=== PATIENT | male | born 1970 | race Caucasian/White ===

== ENCOUNTER 2016-09-16 16:28 | Emergency (ER) | payer OTHER ==
[~2016-09-16] VITALS: Ht 188 cm; Wt 113.4 kg
[2016-09-16 17:16] VITALS: BP 152/83
[2016-09-16 18:28] LABS: BILIRUBIN,URINE SMALL (NEG); GLUCOSE,URINE NEGATIVE (NEG); NITRITE,URINE POSITIVE (NEG); PH,URINE 6.5; PROTEIN,URINE 100 mg/dL (NEG-TRACE)
--- NOTE | 2016-09-16 18:30 | PHYS DOC ---
Past Medical History Past Medical History: No Pertinent History Past Surgical History: Other Additional Past Surgical Histo: Back Alcohol Use: None Drug Use: None Adult General Chief Complaint Chief Complaint: TESTICULAR PAIN OR INJURY [facility] 46-year-old male who states he was bending over to tie his shoes earlier today and fell exquisite lower abdominal pain that then subsided. Patient then stated he started to feel symptoms of fever and developed a large amount of right testicular pain and swelling. Patient denies any nausea or vomiting. Patient does believe he is having some blood in his urine. He denies any pain with urination. He denies any significant pain when he is at rest. He denies any history of abdominal surgery. He denies any abdominal pain that localizes also pain to his right testicle. Patient is not requesting any pain medications. Review of Systems Review of Systems Constitutional: Denies fever or chills [] Eyes: Denies change in visual acuity, redness, or eye pain [] HENT: Denies nasal congestion or sore throat [] Respiratory: Denies cough or shortness of breath [] Cardiovascular: No additional information not addressed in HPI [] GI: Has abdominal pain, denies nausea, denies vomiting, denies bloody stools or diarrhea [] : Denies dysuria, has hematuria [] Musculoskeletal: Denies back pain or joint pain [] Integument: Denies rash or skin lesions [] Neurologic: Denies headache, focal weakness or sensory changes [] Endocrine: Denies polyuria or polydipsia [] Allergies Allergies Allergies Coded Allergies Type Severity Reaction Last Updated Verified No Known Drug Allergies 09/16/16 No Physical Exam Physical Exam Constitutional: Well developed, well nourished, no acute distress, non-toxic appearance. [] HENT: Normocephalic, atraumatic, bilateral external ears normal, oropharynx moist, no oral exudates, nose normal. [] Eyes: PERRLA, EOMI, conjunctiva normal, no discharge. [] Neck: Normal range of motion, no tenderness, supple, no stridor. [] Cardiovascular:Heart rate regular rhythm, no murmur [] Lungs & Thorax: Bilateral breath sounds clear to auscultation [] Abdomen: Bowel sounds normal, soft, no tenderness, no masses, no pulsatile masses. [] : Significant right-sided scrotal swelling and inflammation as well as pain to testicular palpation. Pain is increased with palpation and is not relieved. There is no horizontal lie of the testicle. Skin: Warm, dry, no erythema, no rash. [] Back: No tenderness, no CVA tenderness. [] Extremities: No tenderness, no cyanosis, no clubbing, ROM intact, no edema. [] Neurologic: Alert and oriented X 3, normal motor function, normal sensory function, no focal deficits noted. [] Psychologic: Affect normal, judgement normal, mood normal. [] Current Patient Data Vital Signs Vital Signs Date Time Temp Pulse Resp B/P Pulse Ox O2 Delivery O2 Flow Rate FiO2 09/16/16 17:16 99.4 85 20 152/83 100 Room Air 99.4 Lab Values Laboratory Tests Test 09/16/16 18:22 Urine Collection Type Unknown Urine Color Dolores Urine Clarity Turbid Urine pH 6.5 Urine Specific [place] >=1.030 Urine Protein 100mg/dL (NEG-TRACE) Urine Glucose (UA) Negativemg/dL (NEG) Urine Ketones (Stick) Tracemg/dL (NEG) Urine Blood Large (NEG) Urine Nitrite Positive (NEG) Urine Bilirubin Small (NEG) Urine Urobilinogen Dipstick 1.0mg/dL (0.2 mg/dL) Urine Leukocyte Esterase Large (NEG) Urine RBC 1-2/HPF (0-2) Urine WBC Tntc/HPF (0-4) Urine Squamous Epithelial Cells Few/LPF Urine Bacteria Many/HPF (0-FEW) Urine Mucus Slight/LPF EKG EKG [] Radiology/Procedures Radiology/Procedures Scrotal ultrasound demonstrates the following: Testicular sonogram Indication: Right testicular pain Technique: Multiple real-time grayscale sonographic images were obtained over the scrotum. Findings: The right testicle measures 4.4 x 2.2 x 3.7 centimeters. Epididymis measures 1.4 centimeters. There is normal arterial blood flow in the right testicle. A right-sided hydrocele is noted. The epididymis shows increased vascularity on the Doppler images and appears edematous in the epididymal tail. The left testicle measures 5.5 x 2.4 x 3.4 centimeters. The left epididymis measures 1.2 centimeters. There is normal arterial blood flow in the left testicle. Impression: - There is some thickening of the epididymal tail in hypervascularity as well. This is suspicious for acute epididymitis. Course & Med Decision Making Course & Med Decision Making Pertinent Labs and Imaging studies reviewed. (See chart for details) This is a 46 old significant right-sided scrotal pain and swelling in the right side. A stat scrotal ultrasound will be obtained rule out any compromise blood throat to the testicle. The differential at this time includes epididymitis, orchitis, and less likely testicular torsion. Hernia is also on the differential although less likely as I did not palpate one on exam. I'll also be obtaining urinalysis to rule out any signs of infection. Ultrasound of the right testicle demonstrated findings consistent with epididymitis for which I'll be putting him on a 10 day course of doxycycline with several Pool tablets. He will follow closely with his primary care doctor next several days and take his antibiotic as instructed. Dragon Disclaimer Dragon Disclaimer This electronic medical record was generated, in whole or in part, using a voice recognition dictation system. Departure Departure Impression: Primary Impression: Epididymitis Disposition: 01 HOME, SELF-CARE Admitting Physician: Other Condition: LEFT WITHOUT BEING SEEN Referrals: KAYLEE SANTOS MD (PCP) Patient Instructions: Epididymitis Additional Instructions: Please follow up with your primary doctor in the next 2-3 days for your epididymitis. Take your antibiotic as instructed. Take your pain medication as prescribed. Return to the ER if you develop any worsening of your symptoms. Scripts Hydrocodone/Apap 5-325 (Pool 5-325 Tablet)1 Each Tablet1 Tab PO PRN Q6HRS PRN PAIN #6 TAB Ref 0 Prov:MIGUEL MCDONNELL DO 09/16/16 Doxycycline Monohydrate 100 Mg Capsule1 Cap PO BID #20 CAP Prov:MIGUEL MCDONNELL DO 09/16/16 MIGUEL MCDONNELL DO Sep 16, 2016 18:30
[2016-09-16 18:44] LABS: BACTERIA,URINE MANY /HPF (0-FEW); SQUAMOUS EPITHELIAL CELL,UR FEW /LPF; WBC,URINE TNTC /HPF (0-4)
--- NOTE | 2016-09-16 19:02 | RAD ---
Testicular sonogram Indication: Right testicular pain Technique: Multiple real-time grayscale sonographic images were obtained over the scrotum. Findings: The right testicle measures 4.4 x 2.2 x 3.7 centimeters. Epididymis measures 1.4 centimeters. There is normal arterial blood flow in the right testicle. A right-sided hydrocele is noted. The epididymis shows increased vascularity on the Doppler images and appears edematous in the epididymal tail. The left testicle measures 5.5 x 2.4 x 3.4 centimeters. The left epididymis measures 1.2 centimeters. There is normal arterial blood flow in the left testicle. Impression: - There is some thickening of the epididymal tail in hypervascularity as well. This is suspicious for acute epididymitis. Electronically signed by: Mateus Gallegos (Sep 16, 2016 19:01:22)
[2016-09-16] MEDS ORDERED: HYDR-971 PO (19:17)
[2016-09-16] MEDS ORDERED: DOXY100C14 PO (19:17)
== END 2016-09-16 20:05 | disposition home or self-care (01) ==
LOC: ER 16:28
DX: N45.1 Epididymitis (principal); R50.9 Fever, unspecified; R10.30 Lower abdominal pain, unspecified
CPT/HCPCS: 76870; 81001; 87086; 87186; 99285-25

== ENCOUNTER → 2016-09-30 | Outpatient (CLI) | payer OTHER ==
[2016-09-16 17:16] VITALS: BP 152/83
[~2016-09-30] MED LIST: DOXY100C14 PO; HYDR-971 PO
--- NOTE | 2016-09-30 15:00 | KCIC ---
PROCEDURE Two-view chest HISTORY Mid chest pain on breathing. Shortness of breath on exertion since last night. COMPARISON December 16, 2015. FINDINGS The cardiac silhouette is stable and not enlarged No evidence of pneumothorax. No focal airspace consolidation. No evidence of pleural effusion. IMPRESSION No evidence active disease in the chest or significant interval change. Electronically signed by: Brent Arroyo MD (Sep 30, 2016 14:58:56)
== END | disposition home or self-care (01) ==
LOC: KCIC 10:16
PROVIDERS: ATTEND Physician Assistant Medical
DX: R06.02 Shortness of breath (principal)
CPT/HCPCS: 71020

== ENCOUNTER 2016-10-10 10:10 | Inpatient (IN) | payer OTHER ==
[~2016-10-10] VITALS: Ht 188 cm; Wt 112.1 kg
--- NOTE | 2016-10-10 10:53 | EKG ---
[facility] [address] [place] [address] Test Date: 2016-10-10 Test Time: 10:24:26 Pat Name: KENNEY DIAL Department: Room: Gender: M [employer]er: : 1970 Requested By: Tracy HUNTER Order Number: [id number] Reading MD: Jonny Ortiz Measurements Intervals [place] Rate: 78 P: 46 WA: 152 QRS: 52 QRSD: 108 T: 36 QT: 386 QTc: 444 Interpretive Statements SINUS RHYTHM NONSPECIFIC ST-T WAVE CHANGES. RI6.01 Unconfirmed report Compared to ECG 01/09/2013 06:00:50 No significant changes Electronically Signed On 10-10-2016 14:19:57 [employer] by Jonny Ortiz
[2016-10-10] MEDS ORDERED: ASPIRIN 325 MG TABLET PO ONE (11:00)
[2016-10-10 11:10] LABS: BASO % 0 % (0-3); EOS % 1 % (0-3); HEMATOCRIT 49.8 % (39.0-53.0); HEMOGLOBIN 16.4 g/dL (13.0-17.5); LYMPH # 1.5 x10^3/uL (1.0-4.8); LYMPH % 18 % (24-48); MEAN CORPUSCULAR HEMOGLOBIN 28 pg (25-35); MEAN CORPUSCULAR HGB CONC 33 g/dL (31-37); MEAN CORPUSCULAR VOLUME 86 fL (79-100); MONO % 9 % (0-9); NEUT % 72 % (31-73); PLATELET COUNT 227 x10^3/uL (140-400); RED BLOOD COUNT 5.76 x10^6/uL (4.30-5.70); WHITE BLOOD COUNT 8.7 x10^3/uL (4.0-11.0)
[2016-10-10 11:20] LABS: CALCIUM 9.5 mg/dL (8.5-10.1); CREATININE 1.2 mg/dL (0.7-1.3); GFR 65.8; POTASSIUM 4.1 mmol/L (3.5-5.1)
[2016-10-10 12:14] LABS: BARBITURATES NEG (NEG); BENZODIAZEPINES NEG (NEG); CANNABINOIDS NEG (NEG); COCAINE NEG (NEG); METHADONE NEG (NEG); OPIATES NEG (NEG); PHENCYCLIDINE NEG (NEG)
[2016-10-10 12:15] LABS: ETHANOL, URINE NEG (NEG)
[2016-10-10] MEDS ORDERED: FENTANYL PF 100 MCG/2 ML VIAL. IV PRN (12:45)
[2016-10-10] MEDS ORDERED: ACETAMINOPHEN 325 MG TABLET. PO PRN (12:45)
[2016-10-10] MEDS ORDERED: NITROGLYCERIN SUBLINGUAL 0.4 MG BOTTLE OF 25. SL PRN (12:45)
[2016-10-10] MEDS ORDERED: ONDANSETRON PF 4 MG/2 ML VIAL. IV PRN (12:45)
--- NOTE | 2016-10-10 12:46 | RAD ---
PA and lateral chest radiographs 10/10/2016 Clinical history: Midline chest pain for one week. Two PA and a lateral digital radiographs of the chest were obtained. Comparison study is dated 09/30/2016. The cardiac silhouette is normal in size. The thoracic aorta is minimally tortuous. No acute pulmonary infiltrate is seen. No pleural effusion or pneumothorax is noted. Mild degenerative changes are seen involving the thoracic spine. Impression: No acute abnormality is seen.
--- NOTE | 2016-10-10 12:58 | PHYS DOC ---
Past Medical History Past Medical History: Anxiety Past Surgical History: Other Additional Past Surgical Histo: HERNIATED DISC BACK SX Alcohol Use: None Drug Use: Marijuana Adult General Chief Complaint Chief Complaint: CHEST PAIN HPI HPI Patient is a 46 year old male who presents with for intermittent exertional chest pressure associated with dyspnea that get better with rest. States his symptoms have been over the past 10 days. He saw his primary care doctor, Dr. England, who arranged outpatient stress test for him. He skips this test because his symptoms improved. His symptoms have since returned most recently has a few hours prior to presentation. He is currently asymptomatic. He denies cough, dyspnea, orthopnea, leg pain or swelling, hemoptysis, palpitations, diaphoresis, lightheadedness. Review of Systems Review of Systems Constitutional: Denies fever or chills [] Eyes: Denies change in visual acuity, redness, or eye pain [] HENT: Denies nasal congestion or sore throat [] Respiratory: Denies cough or shortness of breath [] Cardiovascular: No additional information not addressed in HPI [] GI: Denies abdominal pain, nausea, vomiting, bloody stools or diarrhea [] : Denies dysuria or hematuria [] Musculoskeletal: Denies back pain or joint pain [] Integument: Denies rash or skin lesions [] Neurologic: Denies headache, focal weakness or sensory changes [] Endocrine: Denies polyuria or polydipsia [] Current Medications Current Medications Current Medications Medications (Trade) Dose Ordered Sig/[facility] Start Time Stop Time Status Last Admin Dose Admin Aspirin (Damir Aspirin) 325 mg 1X ONCE 10/10/16 11:00 10/10/16 11:03 DC 10/10/16 11:13 325 MG Allergies Allergies Allergies Coded Allergies Type Severity Reaction Last Updated Verified No Known Drug Allergies 09/16/16 No Physical Exam Physical Exam Constitutional: Well developed, well nourished, no acute distress, non-toxic appearance. [] HENT: Normocephalic, atraumatic, bilateral external ears normal, oropharynx moist, nose normal. [] Eyes: PERRLA, EOMI. [] Neck: Normal range of motion, supple. [] Cardiovascular:Heart rate regular rhythm [] Lungs & Thorax: Bilateral breath sounds clear to auscultation [] Abdomen: Bowel sounds normal, soft, no tenderness. [] Skin: Warm, dry, no erythema, no rash. [] Back: Normal range of motion. [] Extremities: No tenderness, ROM intact, no edema, no palpable cord. [] Neurologic: Alert and oriented X 3, normal motor function, normal sensory function, no focal deficits noted. [] Psychologic: Affect normal, judgement normal, mood normal. [] Current Patient Data Vital Signs Vital Signs Date Time Temp Pulse Resp B/P Pulse Ox O2 Delivery O2 Flow Rate FiO2 10/10/16 12:30 72 20 130/73 95 Room Air 10/10/16 10:30 98.0 98.0 Lab Values Laboratory Tests Test 10/10/16 11:00 10/10/16 11:51 White Blood Count 8.7x10^3/uL (4.0-11.0) Red Blood Count 5.76x10^6/uL (4.30-5.70) H Hemoglobin 16.4g/dL (13.0-17.5) Hematocrit 49.8% (39.0-53.0) Mean Corpuscular Volume 86fL (79-100) Mean Corpuscular Hemoglobin 28pg (25-35) Mean Corpuscular Hemoglobin Concent 33g/dL (31-37) Red Cell Distribution Width 15.0% (11.5-14.5) H Platelet Count 227x10^3/uL (140-400) Neutrophils (%) (Auto) 72% (31-73) Lymphocytes (%) (Auto) 18% (24-48) L Monocytes (%) (Auto) 9% (0-9) Eosinophils (%) (Auto) 1% (0-3) Basophils (%) (Auto) 0% (0-3) Neutrophils # (Auto) 6.3x10^3uL (1.8-7.7) Lymphocytes # (Auto) 1.5x10^3/uL (1.0-4.8) Monocytes # (Auto) 0.7x10^3/uL (0.0-1.1) Eosinophils # (Auto) 0.1x10^3/uL (0.0-0.7) Basophils # (Auto) 0.0x10^3/uL (0.0-0.2) Sodium Level 140mmol/L (136-145) Potassium Level 4.1mmol/L (3.5-5.1) Chloride Level 103mmol/L (98-107) Carbon Dioxide Level 27mmol/L (21-32) Anion Gap 10 (6-14) Blood Urea Nitrogen 15mg/dL (8-26) Creatinine 1.2mg/dL (0.7-1.3) Estimated GFR (Cockcroft-Gault) 65.8 Glucose Level 98mg/dL (70-99) Calcium Level 9.5mg/dL (8.5-10.1) Troponin I Quantitative < 0.017ng/mL (0.000-0.055) VL-Uwu-H-Type Natriuretic Peptide 29pg/mL (0-124) Urine Opiates Screen Neg (NEG) Urine Methadone Screen Neg (NEG) Urine Barbiturates Neg (NEG) Urine Phencyclidine Screen Neg (NEG) Urine Amphetamine/Methamphetamine Neg (NEG) Urine Benzodiazepines Screen Neg (NEG) Urine Cocaine Screen Neg (NEG) Urine Cannabinoids Screen Neg (NEG) Urine Ethyl Alcohol Neg (NEG) Laboratory Tests 10/10/16 11:00 Laboratory Tests 10/10/16 11:00 EKG EKG EKG as interpreted by me as normal sinus rhythm, rate 78, no ST-T changes, normal intervals, no ectopy Radiology/Procedures Radiology/Procedures Chest xray as interpreted by me with no acute cardiopulmonary disease process Course & Med Decision Making Course & Med Decision Making Pertinent Labs and Imaging studies reviewed. (See chart for details) Workup is unremarkable. Symptoms are concerning for unstable angina. Will admit for ACS rule out. Discussed case with Dr. England, who agrees to admit. Discussed case with Dr. Pascual, cardiology, who will see him. YANICK score 1 Dragon Disclaimer Dragon Disclaimer This electronic medical record was generated, in whole or in part, using a voice recognition dictation system. Departure Departure Impression: Primary Impression: Chest pain Disposition: ADMITTED INPATIENT Condition: STABLE Referrals: KAYLEE ENGLAND MD (PCP) Problem Qualifiers Primary Impression: Chest pain Chest pain type: unspecified Qualified Code: R07.9 - Chest pain, unspecified Tracy HUNTER MD Oct 10, 2016 12:57
--- NOTE | 2016-10-10 13:36 | PDOC2 ---
CONSULT Date of Consult Date of Consult DATE: 10/10/16 TIME: 13:30 Reason for Consult Reason for Consult: Chest Pain Referring Physician Referring Physician: Adonay England MD Identification/Chief Complaint Chief Complaint Chest Pain with activity History of Present Illness Reason for Visit: Pleasant 46 y/o male seen today following an episode of chest pain while at work. he describes a centralized, pressure like pain that has now almost completely subsided. He denies ever having pain like this before, he denies any SOB at time of incident or currently. He was scheduled for a stress test but was unable to complete. Pt denies any family or personal history of cardiac related issues. Current Problem List Problem List Problems Medical Problems: (1) Chest pain Status: Acute Current Medications Current Medications Current Medications Aspirin (Damir Aspirin) 325 mg 1X ONCE PO Last administered on 10/10/16t 11:13 ; Start 10/10/16 at 11:00; Stop 10/10/16 at 11:03; Status DC Ondansetron HCl (Zofran) 4 mg PRN Q8HRS PRN IV NAUSEA/VOMITING; Start 10/10/16 at 12:45; Stop 10/11/16 at 12:44 Fentanyl Citrate (Fentanyl 2ml Vial) 50 mcg PRN Q2HR PRN IV PAIN; Start at 12:45; Stop 10/11/16 at 12:44 Acetaminophen (Tylenol) 650 mg PRN Q4HRS PRN PO FEVER; Start 10/10/16 at 12:45; Stop 10/11/16 at 12:44 Nitroglycerin (Nitrostat) 0.4 mg PRN Q5MIN PRN SL CHEST PAIN; Start 10/10/16 at 12:45; Stop 10/11/16 at 12:44 Active Scripts Active Webb 5-325 Tablet (Acetaminophen/Hydrocodone Bitart) 1 Each Tablet 1 Tab PO PRN Q6HRS PRN Doxycycline Monohydrate 100 Mg Capsule 1 Cap PO BID Allergies Allergies: Coded Allergies: No Known Drug Allergies (Unverified , 09/16/16) Physical Exam General: Alert, mild distress HEENT: Atraumatic, EOMI, Mucous membr. moist/pink Lungs: Clear to auscultation Heart: Regular rate, Normal S1, Normal S2, No murmurs Extremities: No cyanosis, No edema, Normal pulses Vitals VITALS Vital Signs Date Time Temp Pulse Resp B/P Pulse Ox O2 Delivery O2 Flow Rate FiO2 10/10/16 10:30 98.0 82 20 141/83 97 Room Air 98.0 Labs Labs Laboratory Tests Test 10/10/16 11:00 10/10/16 11:51 White Blood Count 8.7x10^3/uL (4.0-11.0) Red Blood Count 5.76x10^6/uL (4.30-5.70) Hemoglobin 16.4g/dL (13.0-17.5) Hematocrit 49.8% (39.0-53.0) Mean Corpuscular Volume 86fL (79-100) Mean Corpuscular Hemoglobin 28pg (25-35) Mean Corpuscular Hemoglobin Concent 33g/dL (31-37) Red Cell Distribution Width 15.0% (11.5-14.5) Platelet Count 227x10^3/uL (140-400) Neutrophils (%) (Auto) 72% (31-73) Lymphocytes (%) (Auto) 18% (24-48) Monocytes (%) (Auto) 9% (0-9) Eosinophils (%) (Auto) 1% (0-3) Basophils (%) (Auto) 0% (0-3) Neutrophils # (Auto) 6.3x10^3uL (1.8-7.7) Lymphocytes # (Auto) 1.5x10^3/uL (1.0-4.8) Monocytes # (Auto) 0.7x10^3/uL (0.0-1.1) Eosinophils # (Auto) 0.1x10^3/uL (0.0-0.7) Basophils # (Auto) 0.0x10^3/uL (0.0-0.2) Sodium Level 140mmol/L (136-145) Potassium Level 4.1mmol/L (3.5-5.1) Chloride Level 103mmol/L (98-107) Carbon Dioxide Level 27mmol/L (21-32) Anion Gap 10 (6-14) Blood Urea Nitrogen 15mg/dL (8-26) Creatinine 1.2mg/dL (0.7-1.3) Estimated GFR (Cockcroft-Gault) 65.8 Glucose Level 98mg/dL (70-99) Calcium Level 9.5mg/dL (8.5-10.1) Troponin I Quantitative < 0.017ng/mL (0.000-0.055) DL-Wie-O-Type Natriuretic Peptide 29pg/mL (0-124) Urine Opiates Screen Neg (NEG) Urine Methadone Screen Neg (NEG) Urine Barbiturates Neg (NEG) Urine Phencyclidine Screen Neg (NEG) Urine Amphetamine/Methamphetamine Neg (NEG) Urine Benzodiazepines Screen Neg (NEG) Urine Cocaine Screen Neg (NEG) Urine Cannabinoids Screen Neg (NEG) Urine Ethyl Alcohol Neg (NEG) Laboratory Tests Test 10/10/16 11:00 10/10/16 11:51 White Blood Count 8.7x10^3/uL (4.0-11.0) Red Blood Count 5.76x10^6/uL (4.30-5.70) Hemoglobin 16.4g/dL (13.0-17.5) Hematocrit 49.8% (39.0-53.0) Mean Corpuscular Volume 86fL (79-100) Mean Corpuscular Hemoglobin 28pg (25-35) Mean Corpuscular Hemoglobin Concent 33g/dL (31-37) Red Cell Distribution Width 15.0% (11.5-14.5) Platelet Count 227x10^3/uL (140-400) Neutrophils (%) (Auto) 72% (31-73) Lymphocytes (%) (Auto) 18% (24-48) Monocytes (%) (Auto) 9% (0-9) Eosinophils (%) (Auto) 1% (0-3) Basophils (%) (Auto) 0% (0-3) Neutrophils # (Auto) 6.3x10^3uL (1.8-7.7) Lymphocytes # (Auto) 1.5x10^3/uL (1.0-4.8) Monocytes # (Auto) 0.7x10^3/uL (0.0-1.1) Eosinophils # (Auto) 0.1x10^3/uL (0.0-0.7) Basophils # (Auto) 0.0x10^3/uL (0.0-0.2) Sodium Level 140mmol/L (136-145) Potassium Level 4.1mmol/L (3.5-5.1) Chloride Level 103mmol/L (98-107) Carbon Dioxide Level 27mmol/L (21-32) Anion Gap 10 (6-14) Blood Urea Nitrogen 15mg/dL (8-26) Creatinine 1.2mg/dL (0.7-1.3) Estimated GFR (Cockcroft-Gault) 65.8 Glucose Level 98mg/dL (70-99) Calcium Level 9.5mg/dL (8.5-10.1) Troponin I Quantitative < 0.017ng/mL (0.000-0.055) PA-Oei-S-Type Natriuretic Peptide 29pg/mL (0-124) Urine Opiates Screen Neg (NEG) Urine Methadone Screen Neg (NEG) Urine Barbiturates Neg (NEG) Urine Phencyclidine Screen Neg (NEG) Urine Amphetamine/Methamphetamine Neg (NEG) Urine Benzodiazepines Screen Neg (NEG) Urine Cocaine Screen Neg (NEG) Urine Cannabinoids Screen Neg (NEG) Urine Ethyl Alcohol Neg (NEG) Assessment/Plan Assessment/Plan (1) Acute onset chest pain: Troponins negative, will continue to monitor. Pt should have MPI Stress Test tomorrow, 10/11/16 for further evaluation of cardiac perfusion. GIULIANA JOHNSON MD Oct 10, 2016 13:35
--- NOTE | 2016-10-10 13:39 | ACF ---
Admission Forms Criteria CARDIOLOGY GRG Clinical Indications for Admission to Inpatient Care ( Place 'X' for any and all applicable criteria): Hospital admission is needed for appropriate care of the patient because of ANY ONE of the following (1): [ ] I. Hemodynamic instability as indicated by ALL of the following (1)(2)(3) (4)(5) [ ]a) Vital signs or other findings not as expected for chronic patient condition or baseline [ ]b) Instability indicated by ANY ONE of the following: [ ]i) Hypotension [ ]ii) Symptomatic Tachycardia unresponsive to treatment ( e.g., analgesia, fluids, sedation as indicated) [ ]iii) Inadequate perfusion indicated by ANY ONE of the following: [ ] 1) Lactic acidosis (> 2 mmol/L) [ ] 2) New abnormal capillary refill (> 3 seconds) [ ] 3) Reduced urine output [ ] 4) New altered mental status [ ]iv) Orthostatic vital sign changes unresponsive to treatment (e.g., fluids) [ ]v) IV inotropic or vasopressor medication required to maintain adequate blood pressure or perfusion [ ] II. Severe heart failure as indicated by ANY ONE of the following(17)(18) [ ]a) Respiratory distress [ ]b) Hypotension [ ]c) Anasarca (refractory to outpatient therapy) [ ]d) Cardiac arrhythmias of immediate concern [ ]e) Myocardial ischemia [ ] III. Cardiac arrhythmias or findings of immediate concern indicated by ANY ONE of the following (19)(20): [ ] a) Heart rhythms that are inherently dangerous or unstable indicated by ANY ONE of the following (21)(22)(23): [ ] i) Resuscitated ventricular fibrillation or cardiac arrest [ ] ii) Ventricular escape rhythm [ ] iii) Sustained ventricular tachycardia (30 seconds or more of ventricular rhythm at greater than 100 beats per minute) [ ] iv) Nonsustained ventricular tachycardia and ANY ONE of the following: [ ] 1) Suspected cardiac ischemia as cause or consequence of ventricular tachycardia [ ] 2) In setting of acute myocarditis [ ] b) Unstable cardiac conduction defects indicated by ANY ONE of the following(23)(24)(25) [ ] i) Type II second-degree atrioventricular block [ ]ii) Third-degree atrioventricular block [ ]iii) New-onset left bundle branch block with suspected myocardial ischemia [ ]c) Any heart rhythm and ANY ONE of the following (21)(22)(26)(27) (28) [ ] i) Continuous long-term ECG monitoring needed (e.g., initiation of drug requiring monitoring for more than 24 hours) [ ] ii) Patient has automatic implanted cardioverter defibrillator that is repeatedly firing, malfunctioning, or in need of immediate adjustment of settings beyond the scope of ambulatory or observation care [ ]d) Heart rhythms of concern due to ANY ONE of the following: [ ] i) Hypotension [ ] ii) Respiratory distress [ ] iii) Association with other significant symptoms (e.g., bradycardia with syncope or ongoing dizziness, supraventricular tachycardia with chest pain (14)(15)(17) [ ] IV. Monitoring for cardiac contusion beyond the scope of observation care needed [A](30)(31)(32) [ ] V. Surgical or device complication (e.g., valve replacement complication , pacemaker dysfunction) (35)(41)(44)(45)(46) [ ] . Inpatient palliative care needed. [B](49) Also use Inpatient Palliative Care Criteria [ ] VII. Nonbacterial thrombotic (marantic) endocarditis (36)(43)(47)(48) [X] VIII. Cardiology condition, symptom, or finding for which emergency and observation care has failed or are not considered appropriate. [ ] IX. Acute valvular disease requiring inpatient as indicated by ANY ONE of the following (41) [ ]a) Acute valvular regurgitation (42) [ ]b) Noninfectious valvulitis (43) [ ]c) Obstructive valve thrombosis [ ]d) Paravalvular leak [ ]e) Other significant valvular disorder remaining after emergency or observation level of care (as appropriate) [ ]X. Pericardial disease requiring inpatient treatment as indicated by ANY ONE of the following (33)(34)(35)(36)(37) [ ]a) Suspected tamponade (38)(39)(40) [ ]b) Hemopericardium [ ]c) Other significant pericardial disorder remaining after emergency or observation level of care (as appropriate) [ ] XI. Cardiac ischemia beyond scope of emergency and observation care. [ ] XII. Hypertension requiring inpatient treatment as indicated by ANY ONE of the following (6)(7)(8) [ ]a) SBP greater than 220 mm Hg or DBP greater than 120 mmHg despite treatment [ ]b) SBP greater than 140 mm Hg or DBP greater than 100 mm Hg with evidence of acute end organ damage as indicated by ANY ONE of the following [ ] i) Encephalopathy [ ] ii) Acute renal failure as indicated by new onset of ANY ONE of the following (9)(10)(11)(12)(13) [ ]1) 3-fold rise in serum creatinine from baseline [ ]2) Serum creatinine greater than 4 mg/dL ( 354 micromoles/L) with acute rise greater than 0.5 mg/dL (44.2 micromoles/L) [ ]3) Reduction of more than 75% in estimated glomerular filtration rate from baseline [ ]4) Estimated glomerular filtration rate less than 35 mL/min/1.73m2 (0.59 mL/sec/1.73m2) in child up to 18 years of age [ ]5) Cessation of urine output indicated by ALL of the following [ ]A. Adequate volume status [ ]B. Inadequate urine output as indicated by ANY ONE of the following [ ]a. Urine output less than 0.3 mL/kg/hr for 24 hours [ ]b. Anuria (urine output less than 0.1 mL/kg/hr) for 12 hours [ ] iii) Aortic dissection [ ] iv) Myocardial Ischemia [ ] v) Left ventricular heart failure [ ]vi) Retinal Hemorrhage [ ]vii) Other significant finding [ ]c) Hypertension in child requiring inpatient treatment as indicated by ALL of the following(14)(15)(16) [ ] i) Outpatient treatment not effective, not available, or not appropriate [ ]ii) SBP or DBP greater than 95th percentile for age [ ]iii) Evidence of acute end organ damage as indicated by ANY ONE of the following [ ]1) Altered mental status [ ]2) Acute renal failure as indicated by new onset of ANY ONE of the following(9)(10)(11)(12)(13) [ ]A. 3-fold rise in serum creatinine from baseline [ ]B. Serum creatinine greater than 4 mg/dL (354 micromoles/L) with acute rise greater than 0.5 mg/dL (44.2 micromoles/L) [ ]C. Reduction of more than 75% in estimated glomerular filtration rate from baseline [ ]D. Estimated glomerular filtration rate less than 35 mL/min/1.73m2 (0.59 mL/sec/1.73m2) in child up to 18 years of age [ ]E. Cessation of urine output indicated by ALL of the following [ ]a. Adequate volume status [ ]b. Inadequate urine output as indicated by ANY ONE of the following [ ]i) Urine output less than 0.3 mL/kg/hr for 24 hours [ ]ii) Anuria ( urine output less than 0.1 mL/kg/hr) for 12 hours [ ]3) Severe headache [ ]4) Visual disturbance [ ]5) Retinal hemorrhage [ ]6) Other significant finding [ ]XIII. Complications of transplanted heart indicated by ANY ONE of the following(61): [ ]a) Acute graft rejection requiring inpatient management (eg, intravenous immunosuppression)(62)(63) [ ]b) Acute graft heart failure indicated by ANY ONE of the following(64): [ ]i) Hemodynamic instability [ ]ii) Cardiac arrhythmias of immediate concern [ ]iii) Pulmonary edema that is very severe (eg, mechanical ventilation needed, imminent or likely, need for 100% oxygen to keep oxygen saturation above 90%) [ ]iv) Pulmonary edema that is persistent as indicated by ALL of the following: [ ]1) New need for oxygen therapy to keep oxygen saturation above 90% (or increased FiO2 need from baseline) [ ]2) Has not improved sufficiently with emergency department or observation care IV diuretics or other heart failure treatments[E] [ ]v) Altered mental status that is severe or persistent [ ]vi) Increased creatinine (new on laboratory test) with reduction of more than 50% in estimated glomerular filtration rate from baseline [ ]vii) Progressively (ongoing) rising creatinine (known from past laboratory test) with reduction of more than 25% in estimated glomerular filtration rate from baseline [ ]viii) Acute renal failure [ ]ix) Acute peripheral ischemia (eg, examination shows pulseless, cool, mottled, or cyanotic extremity) [ ]x) Pulmonary artery catheter monitoring needed [ ]xi) Other sign or symptom of heart failure requiring inpatient treatment (ie, too severe or not responsive to outpatient and observation care treatment) [ ]c) Infection requiring inpatient management (eg, Hemodynamic instability, need for intravenous antimicrobial treatment)(66)(67)(68)(69)(70) [ ]d) Cardiac allograft vasculopathy requiring inpatient management ( eg evidence of cardiac ischemia)(71) [ ]e) Other complication of transplanted heart (eg, stroke, severe pulmonary hypertension, severe valvular dysfunction) requiring inpatient management(72) The original [facility] content created by [facility] has been revised. The portions of the content which have been revised are identified through the use of italic text or in bold, and [facility] has neither reviewed nor approved the modified material. All other unmodified content is copyright [facility] Please see references footnoted in the original [facility] edition 2016 Admission Criteria Met?: Yes MARIA CELESTIN Oct 10, 2016 13:39
[2016-10-10 19:00] VITALS: BP 129/84
[2016-10-10 23:12] VITALS: BP 136/64
[2016-10-11 03:00] VITALS: BP 132/72
[2016-10-11 07:42] VITALS: BP 124/79
[2016-10-11] MEDS ORDERED: REGADENOSON 0.4 MG/5 ML DISP.SYRIN. IV ONE (07:45)
--- NOTE | 2016-10-11 08:20 | PDOC ---
PROGRESS NOTES Subjective Subjective Pt s/e this morning, he reports his chest pain has subsided but recently got an injection for stress testing this AM and reports he is feeling some discomfort. Pt denies any CARDENAS, dizziness or SOB. Stress test scheduled for this today. Objective Objective Vital Signs Date Time Temp Pulse Resp B/P Pulse Ox O2 Delivery O2 Flow Rate FiO2 10/11/16 07:42 97.4 68 19 124/79 95 Room Air 97.4 Intake and Output 10/11/16 07:00 Intake Total 1380 ml Balance 1380 ml Intake Oral 1380 ml # Voids 6 Physical Exam Heart: Regular rate, Normal S1, Normal S2, No murmurs Extremities: No cyanosis, No edema, Normal pulses General: Alert, Cooperative, No acute distress Neck: Supple, No JVD Assessment Assessment The stress MPI is normal, no evidence of reversible ischemia. Pt has an anxiety disorder as well as depression. From a cardiac standpoint he may go home. Problems Medical Problems: (1) Chest pain Status: Acute Plan Plan of Detention as per Dr England Comment Labs Laboratory Tests Test 10/10/16 11:00 10/10/16 11:51 10/10/16 18:10 10/11/16 00:20 White Blood Count 8.7x10^3/uL (4.0-11.0) Red Blood Count 5.76x10^6/uL (4.30-5.70) Hemoglobin 16.4g/dL (13.0-17.5) Hematocrit 49.8% (39.0-53.0) Mean Corpuscular Volume 86fL (79-100) Mean Corpuscular Hemoglobin 28pg (25-35) Mean Corpuscular Hemoglobin Concent 33g/dL (31-37) Red Cell Distribution Width 15.0% (11.5-14.5) Platelet Count 227x10^3/uL (140-400) Neutrophils (%) (Auto) 72% (31-73) Lymphocytes (%) (Auto) 18% (24-48) Monocytes (%) (Auto) 9% (0-9) Eosinophils (%) (Auto) 1% (0-3) Basophils (%) (Auto) 0% (0-3) Neutrophils # (Auto) 6.3x10^3uL (1.8-7.7) Lymphocytes # (Auto) 1.5x10^3/uL (1.0-4.8) Monocytes # (Auto) 0.7x10^3/uL (0.0-1.1) Eosinophils # (Auto) 0.1x10^3/uL (0.0-0.7) Basophils # (Auto) 0.0x10^3/uL (0.0-0.2) Sodium Level 140mmol/L (136-145) Potassium Level 4.1mmol/L (3.5-5.1) Chloride Level 103mmol/L (98-107) Carbon Dioxide Level 27mmol/L (21-32) Anion Gap 10 (6-14) Blood Urea Nitrogen 15mg/dL (8-26) Creatinine 1.2mg/dL (0.7-1.3) Estimated GFR (Cockcroft-Gault) 65.8 Glucose Level 98mg/dL (70-99) Calcium Level 9.5mg/dL (8.5-10.1) Troponin I Quantitative < 0.017ng/mL (0.000-0.055) < 0.017ng/mL (0.000-0.055) < 0.017ng/mL (0.000-0.055) LS-Zip-W-Type Natriuretic Peptide 29pg/mL (0-124) Urine Opiates Screen Neg (NEG) Urine Methadone Screen Neg (NEG) Urine Barbiturates Neg (NEG) Urine Phencyclidine Screen Neg (NEG) Urine Amphetamine/Methamphetamine Neg (NEG) Urine Benzodiazepines Screen Neg (NEG) Urine Cocaine Screen Neg (NEG) Urine Cannabinoids Screen Neg (NEG) Urine Ethyl Alcohol Neg (NEG) Laboratory Tests Test 10/10/16 11:00 10/10/16 11:51 10/10/16 18:10 10/11/16 00:20 White Blood Count 8.7x10^3/uL (4.0-11.0) Red Blood Count 5.76x10^6/uL (4.30-5.70) Hemoglobin 16.4g/dL (13.0-17.5) Hematocrit 49.8% (39.0-53.0) Mean Corpuscular Volume 86fL (79-100) Mean Corpuscular Hemoglobin 28pg (25-35) Mean Corpuscular Hemoglobin Concent 33g/dL (31-37) Red Cell Distribution Width 15.0% (11.5-14.5) Platelet Count 227x10^3/uL (140-400) Neutrophils (%) (Auto) 72% (31-73) Lymphocytes (%) (Auto) 18% (24-48) Monocytes (%) (Auto) 9% (0-9) Eosinophils (%) (Auto) 1% (0-3) Basophils (%) (Auto) 0% (0-3) Neutrophils # (Auto) 6.3x10^3uL (1.8-7.7) Lymphocytes # (Auto) 1.5x10^3/uL (1.0-4.8) Monocytes # (Auto) 0.7x10^3/uL (0.0-1.1) Eosinophils # (Auto) 0.1x10^3/uL (0.0-0.7) Basophils # (Auto) 0.0x10^3/uL (0.0-0.2) Sodium Level 140mmol/L (136-145) Potassium Level 4.1mmol/L (3.5-5.1) Chloride Level 103mmol/L (98-107) Carbon Dioxide Level 27mmol/L (21-32) Anion Gap 10 (6-14) Blood Urea Nitrogen 15mg/dL (8-26) Creatinine 1.2mg/dL (0.7-1.3) Estimated GFR (Cockcroft-Gault) 65.8 Glucose Level 98mg/dL (70-99) Calcium Level 9.5mg/dL (8.5-10.1) Troponin I Quantitative < 0.017ng/mL (0.000-0.055) < 0.017ng/mL (0.000-0.055) < 0.017ng/mL (0.000-0.055) EY-Ups-B-Type Natriuretic Peptide 29pg/mL (0-124) Urine Opiates Screen Neg (NEG) Urine Methadone Screen Neg (NEG) Urine Barbiturates Neg (NEG) Urine Phencyclidine Screen Neg (NEG) Urine Amphetamine/Methamphetamine Neg (NEG) Urine Benzodiazepines Screen Neg (NEG) Urine Cocaine Screen Neg (NEG) Urine Cannabinoids Screen Neg (NEG) Urine Ethyl Alcohol Neg (NEG) Medications Current Medications Aspirin (Damir Aspirin) 325 mg 1X ONCE PO Last administered on 10/10/16t 11:13 ; Start 10/10/16 at 11:00; Stop 10/10/16 at 11:03; Status DC Ondansetron HCl (Zofran) 4 mg PRN Q8HRS PRN IV NAUSEA/VOMITING; Start 10/10/16 at 12:45; Stop 10/11/16 at 12:44 Fentanyl Citrate (Fentanyl 2ml Vial) 50 mcg PRN Q2HR PRN IV PAIN; Start at 12:45; Stop 10/11/16 at 12:44 Acetaminophen (Tylenol) 650 mg PRN Q4HRS PRN PO FEVER; Start 10/10/16 at 12:45; Stop 10/11/16 at 12:44 Nitroglycerin (Nitrostat) 0.4 mg PRN Q5MIN PRN SL CHEST PAIN; Start 10/10/16 at 12:45; Stop 10/11/16 at 12:44 Regadenoson (Lexiscan) 0.4 mg 1X ONCE IV ; Start 10/11/16 at 07:45; Stop at 07:46; Status DC Active Scripts Active [place] 5-325 Tablet (Acetaminophen/Hydrocodone Bitart) 1 Each Tablet 1 Tab PO PRN Q6HRS PRN Doxycycline Monohydrate 100 Mg Capsule 1 Cap PO BID Vitals/I & O Vital Sign - Last 24 Hours 10/10/16 10/10/16 10/10/16 10/10/16 10:30 11:00 11:30 12:00 Temp 98.0 98.0 Pulse 82 78 76 72 Resp 20 20 18 18 B/P 141/83 143/73 137/78 135/75 Pulse Ox 97 96 95 95 O2 Delivery Room Air Room Air Room Air Room Air 10/10/16 10/10/16 10/10/16 10/10/16 12:30 13:00 13:30 16:08 Pulse 72 72 78 Resp 20 20 20 B/P 130/73 135/70 132/72 Pulse Ox 95 95 97 O2 Delivery Room Air Room Air Room Air Room Air 10/10/16 10/10/16 10/10/16 10/11/16 19:00 20:00 23:12 03:00 Temp 98.4 98.2 98.0 98.4 98.2 98.0 Pulse 79 75 69 Resp 20 20 20 B/P 129/84 136/64 132/72 Pulse Ox 94 96 95 O2 Delivery Room Air Room Air Room Air Room Air 10/11/16 07:42 Temp 97.4 97.4 Pulse 68 Resp 19 B/P 124/79 Pulse Ox 95 O2 Delivery Room Air Intake and Output 10/10/16 10/10/16 10/11/16 15:00 23:00 07:00 Intake Total 780 ml 600 ml Balance 780 ml 600 ml GIULIANA JOHNSON MD Oct 11, 2016 08:20
--- NOTE | 2016-10-11 08:50 | PDOC ---
Provider Note Provider Note [id number] KAYLEE SANTOS MD Oct 11, 2016 08:50
[2016-10-11] MEDS ORDERED: INFLUENZA VAX SCREEN BY RX. MC PRN (09:00)
--- NOTE | 2016-10-11 09:05 | HP ---
ADMIT DATE: CHIEF COMPLAINT: Chest pain and pressure issue. HISTORY OF PRESENT ILLNESS: A 46-year-old white male seen by me in our office recently for epididymitis who has been having some episodes of chest pain and dyspnea, shortness of breath without dysphagia, heartburn or other symptoms. He was scheduled for an outpatient stress echo, but failed to show up and he came back in with recurrent symptoms. He is having in the process of having MPI at this time. PAST MEDICAL HISTORY: No surgeries, no serious medical problems. MEDICATIONS: He is off current medications. ALLERGIES: No allergies are known. SOCIAL HISTORY: He uses chewing tobacco for about 10 years. , physically active. FAMILY HISTORY: Unremarkable. REVIEW OF SYSTEMS: Negative. OBJECTIVE: ENT: All within normal limits. NECK: No masses, nodes or bruits. LUNGS: Clear. ABDOMEN: Soft, benign and nontender. EXTREMITIES: Excellent pedal and radial pulses. No clubbing, cyanosis or edema. NEUROLOGIC: Physiologic and nonfocal. ASSESSMENT: Chest symptoms at relatively low risk patient given his age and short-term tobacco use. GI symptoms may be more likely. PLAN: MPI to eliminate the question of coronary artery disease. KAYLEE SANTOS MD DR: NBA/melani JOB#: [id number] / [id number]
[2016-10-11] MEDS ORDERED: DOXYCYCLINE HYCLATE 100 MG TABLET PO SCH (09:30)
[2016-10-11 11:10] VITALS: BP 144/84
[2016-10-11] MEDS ORDERED: FLU VACC QUAD 2016-17 (36MOS+)/PF 0.5 ML SYRINGE. VAX IM ONE (12:00)
[2016-10-11 14:25] VITALS: BP 133/93
--- NOTE | 2016-10-11 19:27 | RAD ---
APPROVED REPORT Test Type: Pharmacological Stress Nurse/Tech: Claudia Fitzgerald R.N. Test Indications: chest pain, dyspnea Cardiac History: No known cardiac Medications: See Electronic Medical Record Medical History: See Electronic Medical Record Resting ECG: RBBB Resting Heart Rate: 76 bpm Resting Blood Pressure: 124/73mmHg Pretest Chest Pain: No chest pain Nurse/Tech Notes S1S2, lungs sound clear Consent: The procedure was explained to the patient in lay terms. Informed consent was witnessed. Yves eout was entered into [employer]. History and Stress Test performed by Claudia Fitzgerald R.N. Pharm. Details Pharmacologic stress testing was performed using 0.4mg per 5ml of regadenoson given intravenously ove r 7-10 seconds. Stress Symptoms Dyspnea POST EXERCISE Reason for Termination: Infusion complete Max HR: 115 bpm Max Blood Pressure: 134/62mmHg Blood Pressure response to exercise: Normal blood pressure response during stress. Chest Pain: No. Arrhythmia: No. ST Change: No. Imaging Protocol IMAGE PROTOCOL: Rest Tc-99m/stress Tc-99m 1 day Rest: Stress: Viability: Radiopharm.Tc99m [id number] Sestamibi Vqvd14bPg 35mCi Duration 15min. 10min. Img Date 10/11/2016 10/11/2016 Inj-Img [id number]. 60min. Rest Admin Site:IV - Right AntecubitalAdministrator:Felix Jeffrey RT (R)(N) Stress Admin Site: IV - Right AntecubitalAdministrator: Jossy Canseco RT (R)(N) STRESS DATA End Diast. Vol.123.0mlAv. Heart Rate94.0bpm End Syst. Vol.34.0mlCO Index BSA0.0L/min Myocardial Gttu745.0gEject. Nedolrxf46.0% Stress Rates Pk. Fill Rate4.51EDV/secLVtime Pk. Fill 172.14msec Pk. Empty Rate4.12ESV/secLVtime Pk. Zotvq097.39msec 08/09 Pk. Fill1.00EDV/sec Stress Scores Regional WT1.00Summed WT7.00 Regional WM0.00Summed WM0.00 LV Perf. Quant 17 Seg. SSS3.00 17 Seg. SRS8.00 17 Seg. SDS0.00 Stress Defect Extent (% LAD)17.50Rest Defect Extent (% LAD)30.60Rev. Defect Extent (% LAD)0.00 Stress Defect Extent (% LCX) 0.00Rest Defect Extent (% LCX)0.00Rev. Defect Extent (% LCX)0.00 Stress Defect Extent (% RCA)0.00Rest Defect Extent (% RCA)5.60Rev. Defect Extent (% RCA)0.00 Stress Defect Extent (% TANI)8.30Rest Defect Extent (% TANI)15.40Rev. Defect Extent (% TANI)0.00 Conclusion 1. No electrocardiographic changes suggestive of myocardial ischemia with pharmacological stress. 2. No significant perfusion defects to suggest significant myocardial ischemia or scar. 3. Normal wall motion and wall thickening with an ejection fraction of 72%. 4. Scan indicates low risk for future cardiac events
--- NOTE | 2016-10-12 12:13 | DS ---
DATE OF DISCHARGE: 10/11/2016 HOSPITAL SUMMARY: A 46-year-old white male patient in our office, who had been scheduled for an outpatient stress echo, but it failed to show up, then came to the ER with some ongoing chest pain and shortness of breath. He used smokeless tobacco, was his only risk factor. Physical exam was normal and laboratory studies, troponin and EKG were normal as well. Lexiscan MPI was reportedly normal per Dr. Pascual both on EKG and radiologic portion and he is comfortable to be followed as an outpatient as what appears to be a low risk cardiovascular situation. FINAL DIAGNOSES: 1. Noncardiac chest pain. 2. Chronic smokeless tobacco use. OPERATIONS, PROCEDURES, COMPLICATIONS: None. CONSULTATIONS: Dr. Pascual. DISPOSITION: Continue all home meds the same with no new medications. Advised complete tobacco avoidance is best option for future health and will see on a p.r.n. basis. KAYLEE SANTOS MD DR: NBA/melani JOB#: [id number] / [id number]
== END 2016-10-11 18:30 | disposition home or self-care (01) | DRG 313 ==
LOC: ER 10:10 → CVICU 12:40
PROVIDERS: ADMIT Family Medicine; ATTEND Family Medicine
DX: R07.89 Other chest pain (principal); F32.9 Major depressive disorder, single episode, unspecified; F41.9 Anxiety disorder, unspecified; N45.1 Epididymitis; Z72.0 Tobacco use
CPT/HCPCS: 36415; 71020; 78452; 80048; 83880; 84484; 85027; 90686; 93005; 93017; 96374; 96375; 96376; A9500; G0481; J2785; 99285-25